=== PATIENT | male | born 1995 | race African-American/Black ===

== ENCOUNTER 2017-03-20 21:50 | Emergency (ER) | payer MEDICAID ==
--- NOTE | 2017-03-20 23:22 | RADIOLOGY REPORT (SQ) ---
EXAM DESCRIPTION: HAND RIGHT 3 VIEWS COMPLETED DATE/TIME: 03/20/2017 10:52 pm REASON FOR STUDY: pain COMPARISON: None. EXAM PARAMETERS: NUMBER OF VIEWS: Three views. TECHNIQUE: AP, lateral and oblique radiographic images acquired of the right hand. LIMITATIONS: None. FINDINGS: MINERALIZATION: Normal. BONES: No acute fracture or dislocation. No worrisome bone lesions. JOINTS: No effusions. SOFT TISSUES: No soft tissue swelling. No foreign body. OTHER: No other significant finding. IMPRESSION: NO RADIOGRAPHIC EVIDENCE OF ACUTE INJURY. TECHNICAL DOCUMENTATION: JOB ID: [id number] [employer]- All Rights Reserved
[2017-03-21] MEDS ORDERED: IBUPROFEN 800 MG TABLET PO ONE (02:20)
[2017-03-21] MEDS ORDERED: DEXAMETHASONE 4 MG TABLET PO ONE (02:20)
[2017-03-21] MEDS ORDERED: DIPHENHYDRAMINE HCL 50 MG CAPSULE PO ONE (02:20)
--- NOTE | 2017-03-21 02:23 | ER Document Report ---
HPI - HPI Patient complains to provider of: r hand swelling Onset: Yesterday Onset/Duration: Persistent Quality of pain: Achy Pain Level: 3 Context: Patient states that he woke up with right hand pruritus, swelling. Patient states he has been taking Benadryl [id number] without improvement of his symptoms. Patient denies any fever or significant hand pain. Patient states he had feels full due to the swelling. Associated Symptoms: Other - r hand swelling. denies: Fever Exacerbated by: Movement Relieved by: Denies Similar symptoms previously: No Recently seen / treated by doctor: No - ROS ROS below otherwise negative: Yes Systems Reviewed and Negative: Yes All other systems reviewed and negative - CONSTITUTIONAL Constitutional: DENIES: Fever, Chills - NEURO Neurology: DENIES: Weakness - MUSCULOSKELETAL Musculoskeletal: REPORTS: Extremity pain, Swelling - DERM Skin Color: Erythema Skin Problems: None Past Medical History - General Information source: Patient - Social History Smoking Status: Current Every Day Smoker Frequency of alcohol use: None Drug Abuse: None Occupation: none Lives with: Family Family History: DM Patient has suicidal ideation: No Patient has homicidal ideation: No - Medical History Medical History: Negative Pulmonary Medical History: Reports: Hx Asthma Renal/ Medical History: Denies: Hx Peritoneal Dialysis Surgical Hx: Negative - Immunizations Immunizations up to date: Yes Hx Diphtheria, Pertussis, Tetanus Vaccination: Yes Vertical Provider Document - CONSTITUTIONAL Agree With Documented VS: Yes Exam Limitations: No Limitations General Appearance: WD/WN, No Apparent Distress - INFECTION CONTROL TRAVEL OUTSIDE OF THE [place] IN LAST 30 DAYS: No - HEENT HEENT: Atraumatic, Normocephalic - NECK Neck: Normal Inspection - RESPIRATORY Respiratory: No Respiratory Distress O2 Sat by Pulse Oximetry: 98 - CARDIOVASCULAR Pulses: Normal: Radial - MUSCULOSKELETAL/EXTREMETIES Musculoskeletal/Extremeties: MAEW, FROM, Non-Tender, Edema - 1+edema to right hand about 2nd MCP joint - NEURO Level of Consciousness: Awake, Alert, Appropriate Motor/Sensory: No Motor Deficit, No Sensory Deficit - DERM Integumentary: Warm, Dry. negative: Abscess Notes: Erythema to the palmar surface of right hand overlying the second MCP joint, no flexor tendon inflammation Course - Vital Signs Vital signs: Temp Pulse Resp BP Pulse Ox 98.6 F 52 L 16 132/67 H 98 03/20/17 21:57 03/20/17 21:57 03/20/17 21:57 03/20/17 21:57 03/20/17 21:57 Discharge - Discharge Clinical Impression: Insect bite Qualifiers: Encounter type: initial encounter Qualified Code(s): W57.XXXA - Bitten or stung by nonvenomous insect and other nonvenomous arthropods, initial encounter Hand swelling Qualifiers: Laterality: right Qualified Code(s): M79.89 - Other specified soft tissue disorders Condition: Stable Disposition: HOME, SELF-CARE Instructions: Swollen Insect Bite or Sting ([facility]), Steroid Medication, Topical Steroid Cream or Ointment ([facility]), Use of Diphenhydramine Additional Instructions: Return immediately for any new or worsening symptoms Followup with your primary care provider, call tomorrow to make a followup appointment Prescriptions: Naproxen [Naprosyn 250 Nmg Tablet] 1 tab PO BID #14 tablet Triamcinolone Acetonide [Aristocort 0.1% Cream] 1 applic TP TID #60 gm Referrals: [facility] [place] [Provider Group] - Follow up as needed
[2017-03-21 03:16] VITALS: BP 129/88
== END 2017-03-21 03:17 | disposition home or self-care (01) ==
LOC: ER 21:50
DX: M79.89 Other specified soft tissue disorders (principal); W57.XXXA Bitten or stung by nonvenomous insect and other nonvenomous arthropods, initial encounter; F17.200 Nicotine dependence, unspecified, uncomplicated
CPT/HCPCS: 99283

== ENCOUNTER 2018-04-25 07:28 | Emergency (ER) | payer SELFPAY ==
[2018-04-25 07:41] VITALS: BP 121/59
--- NOTE | 2018-04-25 08:36 | ER Document Report ---
ED Extremity Problem, Lower - General Chief Complaint: Toe Injury Stated Complaint: TOE PAIN Time Seen by Provider: 04/25/18 07:55 Mode of Arrival: Ambulatory Information source: Patient Notes: Patient is a 22-year-old male who presented to the ER today for swelling to his left big toe 4 days after he thinks he was bitten by something. Patient admits to burning and itching feeling to that toe. He has been taking Benadryl without relief. He denies any redness or drainage from the toe, fevers or chills. TRAVEL OUTSIDE OF THE [place] IN LAST 30 DAYS: No - Related Data Allergies/Adverse Reactions: No Known Allergies Allergy (Verified 04/25/18 07:29) Past Medical History - General Information source: Patient - Social History Smoking Status: Current Every Day Smoker Chew tobacco use (# tins/day): No Frequency of alcohol use: None Drug Abuse: Marijuana Family History: DM Patient has suicidal ideation: No Patient has homicidal ideation: No Pulmonary Medical History: Reports: Hx Asthma Renal/ Medical History: Denies: Hx Peritoneal Dialysis - Immunizations Immunizations up to date: Yes Hx Diphtheria, Pertussis, Tetanus Vaccination: Yes Review of Systems - Review of Systems Constitutional: No symptoms reported EENT: No symptoms reported Cardiovascular: No symptoms reported Respiratory: No symptoms reported Gastrointestinal: No symptoms reported Genitourinary: No symptoms reported Male Genitourinary: No symptoms reported Musculoskeletal: See HPI Skin: See HPI Hematologic/Lymphatic: No symptoms reported Neurological/Psychological: No symptoms reported Physical Exam - Vital signs Vitals: Temp Pulse Resp BP Pulse Ox 99.5 F 52 L 14 121/59 L 100 04/25/18 07:34 04/25/18 07:34 04/25/18 07:34 04/25/18 07:34 04/25/18 07:34 - Notes Notes: PHYSICAL EXAMINATION: GENERAL: Well-appearing and in no acute distress. HEAD: Atraumatic, normocephalic. EYES: Pupils equal round and reactive to light, extraocular movements intact, sclera anicteric, conjunctiva are normal. NECK: Normal range of motion, supple without lymphadenopathy LUNGS: CTAB and equal. No wheezes rales or rhonchi. HEART: Regular rate and rhythm without murmurs EXTREMITIES: Normal range of motion, no pitting edema. No cyanosis. NEUROLOGICAL: Cranial nerves grossly intact. Normal sensory/motor exams. PSYCH: Normal mood, normal affect. SKIN: Warm, Dry, normal turgor, no rashes or lesions noted Course - Re-evaluation Re-evalutation: 04/25/18 08:35 I do not appreciate any swelling or redness to the toe at all, however will place patient on 3 days of prednisone for his symptoms. - Vital Signs Vital signs: Temp Pulse Resp BP Pulse Ox 99.5 F 52 L 14 121/59 L 100 04/25/18 07:34 04/25/18 07:34 04/25/18 07:34 04/25/18 07:34 04/25/18 07:34 Discharge - Discharge Clinical Impression: Possible insect bite Condition: Stable Disposition: HOME, SELF-CARE Additional Instructions: Return immediately for any new or worsening symptoms. Follow up with primary care provider, call tomorrow to make followup appointment. Prescriptions: Prednisone [Deltasone 20 mg Tablet] 2 tab PO DAILY 3 Days #6 tablet
== END 2018-04-25 08:43 | disposition home or self-care (01) ==
LOC: ER 07:28
DX: L29.9 Pruritus, unspecified (principal); R20.8 Other disturbances of skin sensation; F17.200 Nicotine dependence, unspecified, uncomplicated; F12.10 Cannabis abuse, uncomplicated
CPT/HCPCS: 99283

== ENCOUNTER 2019-03-26 00:51 | Emergency (ER) | payer SELFPAY ==
[2019-03-26] MEDS ORDERED: PENICILLIN V POTASSIUM 500 MG TABLET PO ONE (02:27)
[2019-03-26] MEDS ORDERED: HYDROCODONE/ACETAMINOPHEN 5-325 MG (6 TAB/ER DISP) PO PRN (02:27)
--- NOTE | 2019-03-26 02:36 | ER Document Report ---
HPI - HPI Time Seen by Provider: 03/26/19 02:21 Context: Patient is a 23-year-old male that comes to the emergency department for chief complaint of pain in his right upper jaw. He states he has had fillings and fractured teeth in the past. He denies neck pain, sore throat, fever, or any other complaints. Past Medical History - General Information source: Patient - Social History Smoking Status: Never Smoker Frequency of alcohol use: None Drug Abuse: None Lives with: Family Family History: DM Pulmonary Medical History: Reports: Hx Asthma Renal/ Medical History: Denies: Hx Peritoneal Dialysis Surgical Hx: Negative - Immunizations Immunizations up to date: Yes Hx Diphtheria, Pertussis, Tetanus Vaccination: Yes Vertical Provider Document - CONSTITUTIONAL General Appearance: WD/WN, No Apparent Distress - INFECTION CONTROL TRAVEL OUTSIDE OF THE [place] IN LAST 30 DAYS: No - HEENT HEENT: Atraumatic, Normocephalic Mouth Diagram: 1 - dental caries with mild surrounding erythema. No abscess or other abnormality noted - NECK Neck: Normal Inspection - RESPIRATORY Respiratory: Breath Sounds Normal - CARDIOVASCULAR Cardiovascular: Regular Rate, Regular Rhythm - GI/ABDOMEN Gastrointestinal: Abdomen Soft, Abdomen Non-Tender - BACK Back: Normal Inspection - MUSCULOSKELETAL/EXTREMETIES Musculoskeletal/Extremeties: MAEW, FROM, Non-Tender - NEURO Level of Consciousness: Awake, Alert, Appropriate - DERM Integumentary: Warm, Dry, No Rash Course - Vital Signs Vital signs: Temp Pulse Resp BP Pulse Ox 97.9 F 58 L 18 123/76 98 03/26/19 00:55 03/26/19 00:55 03/26/19 00:55 03/26/19 00:55 03/26/19 00:55 Discharge - Discharge Clinical Impression: Pain, dental, Dental infection Condition: Stable Disposition: HOME, SELF-CARE Additional Instructions: Take the antibiotics as prescribed to completion. Follow-up with the dentist for additional management so this does not continue to occur. Return if you worsen including swelling of the face. [facility] [address] [facility], [id number] Prescriptions: Penicillin V Potassium [Penicillin Vk 500 mg Tablet] 500 mg PO BID #20 tablet Forms: Return to Work
[2019-03-26 02:42] VITALS: BP 117/68
== END 2019-03-26 03:07 | disposition home or self-care (01) ==
LOC: ER 00:51
DX: K04.7 Periapical abscess without sinus (principal); K02.9 Dental caries, unspecified; J45.909 Unspecified asthma, uncomplicated
CPT/HCPCS: 99282